=== PATIENT | female | born 1955 | race Caucasian/White ===

== ENCOUNTER 2019-01-18 15:45 | Emergency (ER) | payer MEDICARE ==
[2019-01-18 16:33] VITALS: BP 128/91
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
== END 2019-01-18 17:44 | disposition home or self-care (01) ==
LOC: UCEAST 15:45
DX: S20.221A Contusion of right back wall of thorax, initial encounter (principal); W22.8XXA Striking against or struck by other objects, initial encounter; Y93.16 Activity, rowing, canoeing, kayaking, rafting and tubing; Y92.838 Other recreation area as the place of occurrence of the external cause
CPT/HCPCS: 99212; G0463

== ENCOUNTER 2019-05-22 10:58 | Emergency (ER) | payer MEDICARE ==
[2019-05-22 11:36] VITALS: BP 152/84
--- NOTE | 2019-05-22 11:53 | UC ---
Skin Complaint HPI - HPI Summary HPI Summary: Received flu shot on 05/19/19 and has had bodyaches,subj fever and left arm pain/soreness, mostly in bicep since then. She does exercise prepping for her hip replacment but does not think that is contributing. She denies tingling/numbness, denies redness or swelling in arm. Reports feeling like it is a deep ache. Has pain when lifting heavy items, pain radiates to shoulder. nothing makes it better. - History of Current Complaint Chief Complaint: UCUpperExtremity Time Seen by Provider: 05/22/19 11:44 Stated Complaint: SORE ARM FROM FLU SHOT Hx Obtained From: Patient Pain Intensity: 9 Pain Scale Used: 0-10 Numeric Aggravating Factor(s): Other Alleviating Factor(s): Nothing - Allergy/Home Medications Allergies/Adverse Reactions: Allergies Allergy/AdvReac Type Severity Reaction Status Date / Time No Known Allergies Allergy Verified 05/22/19 11:37 PMH/Surg Hx/FS Hx/Imm Hx - Additional Past Medical History Additional PMH: chronic arthritis. Previously Healthy: Yes - Surgical History Surgical History: Yes Surgery Procedure, Year, and Place: LEFT KNEE MENISCUS REPAIR, - Family History Known Family History: Positive: Respiratory Disease - Social History Alcohol Use: Occasionally Substance Use Type: None Smoking Status (MU): Never Smoked Tobacco Review of Systems All Other Systems Reviewed And Are Negative: Yes Constitutional: Positive: Fever, Fatigue. Negative: Chills Skin: Negative: Rash, Bruising Respiratory: Negative: Shortness Of Breath Cardiovascular: Negative: Chest Pain Musculoskeletal: Positive: Arthralgia, Myalgia. Negative: Edema Physical Exam Triage Information Reviewed: Yes Appearance: Well-Appearing Vital Signs: Initial Vital Signs Temp 98.2 F 05/22/19 11:33 Pulse 78 05/22/19 11:33 Resp 16 05/22/19 11:33 BP 152/84 05/22/19 11:33 Pulse Ox 100 05/22/19 11:33 Vital Signs Reviewed: Yes Neck: Positive: No Lymphadenopathy Respiratory Exam: Normal Cardiovascular Exam: Normal Musculoskeletal: Positive: ROM Intact - entire L upper extremity, Other: - Tenderness at L joint only, bicep, deltoid on L side all palpated w/ NO tenderness. Neurological: Positive: Muscle Tone Normal Skin: Negative: Rashes, Other - There is NO redness or swelling at injection site. Her entire L arm is free from any skin issues. Course/Dx - Course Course Of Treatment: Unclear etiology of L upper arm pain after receiving the flu shot. There are no complaints of neurovascular symptoms and no signs of inflammation at injections site. When asked if this could be a chronic joint issues she said no b/c it was right after the flu vaccine injection. We reviewed warning signs/ sx of when to be re-evaluated or if pain persists perhaps getting seen by her pcp. At this point there are no indications this pain was from the flu vaccine or is occurring at the flu vaccine site. Blood pressure elevated but she will disc w/ pcp. - Differential Diagnoses - Skin Complaint Differential Diagnoses: Allergic Reaction, Drug Rash, Drug Intoxication - Diagnoses Provider Diagnosis: Left arm pain Discharge ED - Sign-Out/Discharge Documenting (check all that apply): Patient Departure All imaging exams completed and their final reports reviewed: No Studies - Discharge Plan Condition: Good Disposition: HOME Patient Education Materials: Influenza A Virus Vaccine, H5N1, Inactivated ( Injection) Referrals: Ivory Frances NP [Primary Care Provider] - Additional Instructions: If you develop redness, fever, weakness or numbness please follow up here. If the pain is the same or worse please follow up with primary care. - Billing Disposition and Condition Condition: GOOD Disposition: Home
== END 2019-05-22 12:23 | disposition home or self-care (01) ==
LOC: UCEAST 10:58
DX: M79.622 Pain in left upper arm (principal); M19.90 Unspecified osteoarthritis, unspecified site; R50.9 Fever, unspecified; R53.83 Other fatigue

== ENCOUNTER 2019-06-30 09:00 | Inpatient (IN) | payer MEDICARE ==
--- NOTE | 2019-06-17 10:25 | HP ---
PREOPERATIVE HISTORY AND PHYSICAL: DATE OF ADMISSION/SURGERY: 06/30/19 DATE OF OFFICE VISIT: 06/17/19 SURGEON: Lucero Ortega MD * (DICTATED BY PAPI QUIROGA) PROCEDURE: Left total hip arthroplasty. CHIEF COMPLAINT: Left hip pain. HISTORY OF PRESENT ILLNESS: Ms. Read is a 63-year-old female with severe end- stage osteoarthritis of the left hip. She has failed conservative treatment and elected to proceed with a left total hip arthroplasty. PAST MEDICAL HISTORY: Osteoporosis, asthma, and scoliosis. PAST SURGICAL HISTORY: Left knee arthroscopy, cervical polypectomy under anesthesia, and tonsillectomy. CURRENT MEDICATIONS: 1. Meloxicam 7.5 mg twice a day. 2. Tylenol as needed. 3. Centrum Silver. 4. Aspercreme. 5. Ventolin HFA 2 puffs daily. 6. Accolate 20 mg a day. 7. Advair Diskus once a day. 8. Vitamin D. 9. Calcium. 10. Turmeric. 11. Mometasone. 12. Prolia. ALLERGIES: No known drug allergies. FAMILY HISTORY: Dementia, cancer, COPD, asthma, and Parkinson's disease. SOCIAL HISTORY: She is a 63-year-old female. She lives with her . She does not smoke or use drugs. REVIEW OF SYSTEMS: A complete 14-point review of systems was reviewed with the patient, is positive for asthma. She denies history of DVT, PE, hepatitis, HIV , or anesthesia problems. PHYSICAL EXAMINATION GENERAL: She is well-developed, well-nourished, in no acute distress. VITAL SIGNS: She stands 60 inches tall, weighs 117 pounds, her blood pressure is 134/88. Her heart rate is 72. HEENT: Normocephalic, atraumatic. NECK: Supple. No palpable lymph nodes. PULMONARY: Lungs are clear to auscultation bilaterally. CARDIO: Regular rate and rhythm. Strong S1 and S2. ABDOMEN: Soft, nontender, nondistended. NEUROLOGICAL: She is alert and oriented x3. MUSCULOSKELETAL: Left lower extremity: The skin is intact. There are no open wounds or abrasions. She walks with an antalgic type gait favoring her left hip. She has 80 degrees of hip flexion and 0 degrees of internal rotation and both reproducing severe groin pain. She is able to dorsiflex and plantarflex, has a 2+ dorsalis pedis pulse and intact sensation. ASSESSMENT AND PLAN: Ms. Read is a 63-year-old female with severe end-stage osteoarthritis of the left hip. She has failed conservative treatment and elected to proceed with the left total hip arthroplasty. The surgery is scheduled for 06/30/[address] Ortega discussed the risks and benefits of the surgery at today's visit and all of her questions were answered. She will follow up with Dr. Ortega 2 weeks after the surgery. PAPI QUIROGA [id number]/[facility] #: [id number] PAPITO
[~2019-06-30 09:00] MED LIST: Buffered Lidocaine 1% SYRIN* 1 ML/SYRINGE INTRADERM ONE; Famotidine IV* 10 MG/ML 2 ML (20 mg) IV ONE; Famotidine IV* 10 MG/ML 2 ML (20 mg) ONE; Gabapentin CAP(*) 300 MG ONE; Gabapentin CAP(*) 300 MG PO ONE; Lactated Ringers 1000 ML Bag* 1,000 ML IV SCH; Tranexamic Acid 1,000 MG in NS 0.9% 50 ML* (outpatient use) IV SCH; ceFAZolin 2 GM in NS PREMIX(*) 2 GM/100 ML BAG IVPB ONE
[2019-06-30] MEDS ORDERED: fentaNYL* 50 MCG/ML 2 ML VIAL (100 MCG VIAL) ONE ×2 (10:40→14:20)
[2019-06-30] MEDS ORDERED: Midazolam* 1 MG/ML 2 ML VIAL (2 MG) ONE (10:40)
[2019-06-30] MEDS ORDERED: ROPIVACAINE 5 MG/ML 30 ML BTL (0.5%) ONE (11:22)
[2019-06-30] MEDS ORDERED: Ropivacaine (OR use only) 2 MG/ML 10 ML ONE (11:24)
[2019-06-30] MEDS ORDERED: Lidocaine 2% PF * 5 ML VIAL ONE (12:45)
[2019-06-30] MEDS ORDERED: Acetaminophen IV 1GM/100ML * 100 ML ONE (12:45)
[2019-06-30] MEDS ORDERED: Propofol* 10 MG/ML 20 ML BTL ONE ×2 (13:29→15:03)
[2019-06-30] MEDS ORDERED: Dexamethasone IV* 4 MG/ML 1 ML (4 MG) ONE (13:29)
[2019-06-30] MEDS ORDERED: DiMENhydriNATE IV* 50 MG/ML VIAL IV PUSH PRN (13:39)
[2019-06-30] MEDS ORDERED: Naloxone* 0.4 MG/ML 1 ML VIAL IV PRN (13:39)
[2019-06-30] MEDS ORDERED: Ondansetron INJ* 2 MG/ML VIAL IV PRN ×2 (13:39→15:25)
[2019-06-30] MEDS ORDERED: diPHENhydraMINE IV* 50 MG/ML 1 ml VIAL (BENADRYL) IV PRN ×2 (13:39→15:25)
[2019-06-30] MEDS ORDERED: fentaNYL* 50 MCG/ML 2 ML VIAL (100 MCG VIAL) IV PRN (13:39)
[2019-06-30] MEDS ORDERED: Levalbuterol 0.63MG/3ML NEB* UNIT OF USE INH PRN (13:39)
[2019-06-30] MEDS ORDERED: EPHEDrine (Pressors)* 50 MG/ML VIAL ONE (14:31)
[2019-06-30] MEDS ORDERED: Ondansetron INJ* 2 MG/ML VIAL ONE (15:03)
[2019-06-30] MEDS ORDERED: Ondansetron ODT TAB* 4 MG PO PRN (15:25)
[2019-06-30] MEDS ORDERED: Ondansetron TAB* 4 MG PO PRN (15:25)
[2019-06-30] MEDS ORDERED: diPHENhydraMINE PO* 25 MG PO PRN (15:25)
[2019-06-30] MEDS ORDERED: Morphine INJ* 2 MG/ML 1 ML SYRINGE (TWO MG - NEW SYRINGE VERSION) IV PRN (15:25)
[2019-06-30] MEDS ORDERED: Cyclobenzaprine TAB* 10 MG PO PRN (15:25)
[2019-06-30] MEDS ORDERED: Magnesium Hydroxide LIQ* 30 ML UDC PO PRN (15:25)
[2019-06-30] MEDS ORDERED: Polyethylene Glycol 3350* 17 GM PACKET PO PRN (15:25)
--- NOTE | 2019-06-30 16:26 | PN ---
Progress Note - Progress Note Date of Service: 06/30/19 Note: resting comfortably in recovery, pain well controlled; able to DF/PF, 2+ DP pulse and intact sensation; hip abduction pillow in place; dressing c/d/i
[2019-06-30] MEDS: Lactated Ringers 1000 ML Bag* 1,000 ML IV SCH (16:59)
[2019-06-30] MEDS: oxyCODONE TAB* 5 MG TAB PO PRN (18:10)
--- NOTE | 2019-06-30 19:19 | OP ---
Operative Report - Blank - Operative Report Date of Operation: 06/30/19 Note: YENI BETTS 1955 Date Of Surgery: 06/30/19 Lucero Ortega MD Fire Warden: Sudha TURPIN did help throughout the procedure with preparation of the hip, wound retraction, manipulation of the hip, and wound closure. Anesthesiologist: Dr. Kennedy Anesthesia Type: Spinal Preoperative Diagnosis: Left severe degenerative osteoarthritis of the hip Postoperative Diagnosis: As above Procedure Performed: Left Total Hip Arthroplasty Complications: None Specimen: Femoral head and acetabular reamings sent to pathology. Hardware used: This is uncemented [place] total hip arthroplasty hardware for the femur a size 5 accolade II with 127 neck angle femoral component, for the acetabulum a size 46C trident II tritanium cluster hole shell, one 20 mm screw, for the insert a size 36C MDM liner insert, and for the femoral head a size 22.2 +0 LFIT V40 femoral head, with a 22.2/36C MDM X3 insert. Brief history/Indication: YENI BETTS was known in clinic and had a history of severe left hip pain. She failed conservative treatment with anti-inflammatories , pain pills, intra-articular injections and physical therapy. She elected to undergo left total hip arthroplasty due to continued pain and decreased quality of life. Radiographs showed severe end stage osteoarthritis of the hip with bone on bone contact. Informed consent was obtained from the patient. She understood the risks of surgery included but were not limited to: bleeding, infection, damage to nearby structures, intraoperative fracture, nerve palsy, failure of the hardware, early loosening, stiffness or loss of motion, dislocation, leg length discrepancy, anesthesia complications, stroke, heart attack, blood clot and . She wished to proceed. Intra-Operative findings: Intraoperatively the patient was noted to have severe loss of cartilage of the acetabulum and femoral head. She had deformity of the acetabulum which was extensive, with broken fragments of bone along the anterior wall and superolateral wall. Description of the Procedure: YENI BETTS was identified in the preanesthesia unit. Her left hip was marked as the correct operative side. Informed consent was signed and placed in the chart. The patient was taken to the operating room and placed under anesthesia without complication. A yancey catheter was placed. The patient was placed on the peg board with all bony prominences well padded. The left lower extremity was prepped and draped in the usual sterile fashion. Preoperative time-out was made to correctly identify the patient, side and site. Appropriate intraoperative antibiotics were given within one hour of incision. A standard posterior incision was made and carried sharply down to the lateral fascia. A new 10 blade was used to make an incision in the fascia in line with the skin incision. A charnley retractor was placed. The piriformis and conjoined tendons were identified and elevated off the posterolateral femur using electrocautery. These were tagged with number 5 Ethibond. Next electrocautery was used to make a posterolateral capsular flap and this was tagged with number 5 Ethibonds. The hip was carefully dislocated. Lesser trochanter to the center of the femoral head was measured at 55 mm. The oscillating saw was used to make the femoral neck cut. The femoral head was carefully removed. The femur was retracted anteriorly and the acetabular retractors were placed. Long-handled knife was used to sharply remove any remaining labrum from the acetabular rim. The acetabulum was extremely worn with a broken fragment along the anterior wall and a large broken fragment along the superolateral wall. These fragments were carefully removed. The acetabulum was sequentially reamed up to a size 46. A bleeding subchondral bone bed was obtained. A trial liner was placed and had excellent fit and stability. A 46C cup with a 20 mm screw was placed and had excellent stability with appropriate anteversion and abduction angle. A size 36 C MDM cementless liner was impacted into the acetabular shell. The liner was checked for stability and was stable. Next attention was turned to preparation of the femoral canal. A canal finder was used to enter the proximal femur. The femoral canal was sequentially broached up to a size 5 femoral broach trial. A trial neck and 22.2 + 0 trial femoral head with 36C X3 MDM trial was chosen. Lesser trochanter to center of the femoral head measurement was satisfactory. The hip was reduced and taken through a range of motion. The hip was stable in all positions with good soft tissue tension and appropriate leg lengths. The hip was dislocated and all trials were removed. The final implant chosen was a accolade size 5. This stem was impacted into the femoral canal without difficulty. The stem was stable with appropriate anteversion. The femoral head chosen was a 22.2 + 0 with 22.2/36C MDM liner insert. The head was impacted onto the femoral neck without difficulty. The final lesser trochanter to center of the femoral head measurement was satisfactory. The hip was reduced and taken through a range of motion. The hip was stable in all positions with good soft tissue tension and appropriate leg lengths. The hip was copiously irrigated with sterile saline. The previously tagged capsule and tendons were repaired to the posterolateral femur through two trochanteric drill holes. The lateral fascia layer was closed using number 1 vicryls. The rest of the incision was closed in a layered fashion using 0 and 2-0 vicryls. The skin was closed using 3-0 monocryl suture and Dermabond. Sterile adaptic, 4x4s and paper tape was used to cover the incision. The patients anesthesia was reversed without difficulty. She was taken to the PACU in stable condition. Intended weight-bearing will be as tolerated with posterior hip precautions.
[2019-06-30] MEDS: Magnesium Hydroxide LIQ* 30 ML UDC PO SCH (21:12)
[2019-06-30] MEDS: ceFAZolin 1 GM ADVAN(*) 1 GM in NS 0.9% 50 ML* 50 ML IVPB SCH (21:12)
[2019-06-30] MEDS: Docusate CAP* 100 MG PO SCH (21:12)
[2019-06-30] MEDS: Acetaminophen TAB* 325 MG PO SCH (23:02)
[2019-07-01] MEDS: oxyCODONE/Acetamin 5/325 MG* TAB PO PRN ×4 (03:26→19:47)
[2019-07-01] MEDS: Lactated Ringers 1000 ML Bag* 1,000 ML IV SCH (03:35)
[2019-07-01] MEDS: oxyCODONE TAB* 5 MG TAB PO PRN ×3 (05:28→17:13)
[2019-07-01] MEDS: ceFAZolin 1 GM ADVAN(*) 1 GM in NS 0.9% 50 ML* 50 ML IVPB SCH ×2 (05:30→12:36)
[2019-07-01 05:54] LABS: Hematocrit 27 % (35-47); Hemoglobin 9.2 g/dL (12.0-16.0); Mean Platelet Volume 7.2 fL (7.4-10.4); Platelet Count 238 10^3/uL (150-450)
[2019-07-01 06:13] LABS: BUN/Creatinine Ratio 42.9 (8-20); Calcium 8.4 mg/dL (8.6-10.3); EGFR African American 183.2 (>60); EGFR Non-African American 151.4 (>60); Potassium 4.4 mmol/L (3.5-5.0)
[2019-07-01] MEDS: Acetaminophen TAB* 325 MG PO SCH ×3 (06:54→22:13)
[2019-07-01] MEDS: Magnesium Hydroxide LIQ* 30 ML UDC PO SCH ×2 (10:00→19:48)
[2019-07-01] MEDS: Docusate CAP* 100 MG PO SCH ×2 (10:01→19:48)
[2019-07-01] MEDS: Mometasone/Formoter 100/5 MDI INH SCH (10:01)
[2019-07-01] MEDS: Montelukast Sodium TAB* 5 MG PO SCH (10:01)
[2019-07-01] MEDS: Apixaban* 2.5 MG TAB PO SCH ×2 (10:01→19:47)
[2019-07-01] MEDS: Vitamin THERAPEUTIC TAB PO SCH (10:02)
--- NOTE | 2019-07-01 13:39 | PN ---
Progress Note - Progress Note Date of Service: 07/01/19 SOAP: Subjective: [Pt was seen sitting in chair this morning. She is very nervous about her hip. She states that she is concerned about the 50% WB status and is trying to learn how to follow it well with physical therapy. She denies any chest pain, SOB, nausea or vomiting. ] Objective: [General: Pt is alert and oriented x3. NAD MSK, LLE: Dressing is c/d/i. +df/pf. calves soft and non tender. NVI. 2+ DP pulse. ] Vital Signs Temp 99.4 F 07/01/19 13:00 Pulse 85 07/01/19 13:00 Resp 16 07/01/19 13:00 BP 126/53 07/01/19 13:00 Pulse Ox 97 07/01/19 13:00 Intake & Output 06/30/19 07/01/19 07/01/19 18:59 06:59 18:59 Intake Total 1600 1535 440 Output Total 250 850 Balance 1350 685 440 Weight 115 lb Intake: IV Fluids 1600 1035 ABX - CEFAZOLIN 55 LR 1600 980 Oral 500 440 Output: Hutcihson 250 850 Other: Estimated Void Medium Assessment: [POD 1 LTHA ] Plan: [Continue with 50% WB with strict posterior hip precautions Pain management PT/OT ]
[2019-07-02] MEDS: oxyCODONE/Acetamin 5/325 MG* TAB PO PRN ×4 (00:05→11:53)
[2019-07-02] MEDS: Acetaminophen TAB* 325 MG PO SCH ×2 (06:57→13:29)
[2019-07-02 07:25] LABS: Hematocrit 24 % (35-47); Hemoglobin 8.3 g/dL (12.0-16.0); Mean Platelet Volume 7.3 fL (7.4-10.4); Platelet Count 197 10^3/uL (150-450)
--- NOTE | 2019-07-02 07:38 | PN ---
Progress Note - Progress Note Date of Service: 07/02/19 SOAP: Subjective: Pt. is alert. Reports moderate pain left hip. Objective: Vital Signs: Temp Pulse Resp BP Pulse Ox 98.9 F 75 16 114/51 93 07/02/19 03:19 07/02/19 03:19 07/02/19 06:27 07/02/19 03:19 07/02/19 03:19 Laboratory Results - last 24 hr 07/02/19 07:04 Hgb 8.3 L Hct 24 L Plt Count 197 MPV 7.3 L LLE - dressing changed, inc c/d/i. thigh swollen but compressible. distally nvi. Assessment: 63 yo F pod 2 s/p LTHA Plan: pt - 50 % wb lle secondary to extreme acetabular bone loss intraop from chronic wear eliquis plan home with vns acute postop blood loss anemia - will monitor
[2019-07-02] MEDS: Mometasone/Formoter 100/5 MDI INH SCH (08:05)
[2019-07-02] MEDS: Montelukast Sodium TAB* 5 MG PO SCH (08:36)
[2019-07-02] MEDS: Apixaban* 2.5 MG TAB PO SCH (08:37)
[2019-07-02] MEDS: Magnesium Hydroxide LIQ* 30 ML UDC PO SCH (08:37)
[2019-07-02] MEDS: Vitamin THERAPEUTIC TAB PO SCH (08:37)
[2019-07-02] MEDS: Docusate CAP* 100 MG PO SCH (08:37)
[2019-07-02] MEDS ORDERED: Bisacodyl SUPP* 10 MG SUPP PR PRN (15:25)
[2019-07-02 15:41] VITALS: BP 115/51
--- NOTE | 2019-07-02 18:08 | DS ---
Orthopedic Discharge Summary - Discharge Summary Date of service: 07/02/19 Date of Admission:06/30/19 Date of Discharge: [07/02/19] Date of Surgery: [06/30/19] Attending Orthopedic Provider: [Dr. Ortega] Pre-operative Diagnosis: [Left hip OA] Operative Procedure: [Left total hip replacement] Disposition of Patient: [Home with VNS] Condition of Patient: [Stable] History: YENI BETTS is a 63 year old F with years of increasingly severe [left hip] pain. Patient has failed conservative management and has elected to undergo a [left] total [hip] replacement Hospital Course: YENI was admitted to [facility] on 06/30/19. Patient underwent a [left total hip replacement] without complication followed by a brief recovery in PACU and transfer to the Short Stay Surgical Unit in stable condition. She was 50% weight bearing due to a thin acetabulum. Our hospitalist service, physical therapy and occupational therapy also participated in this patients care. Post-op day 1: patient was alert and in no acute distress. Dressing was clean, dry and intact. Operative extremity dorsiflexion and plantarflexion intact, sensation intact to light touch distally , DP2+. Post-op day two: dressing was changed, incision was clean, dry and intact. Patient was deemed to be medically and orthopedically stable for discharge to home with VNS services. Physical therapy goals were met. Home Medications Medication Instructions Recorded Confirmed Type Fluticasone-Salmeterol 100-50* 1 puff INH DAILY 04/02/13 06/30/19 History [Advair Diskus 100-50*] Multivitamins/Minerals TAB* [Thera 1 tab PO QAM 04/02/13 06/30/19 History M Plus TAB*] Vitamin D CAP* [Drisdol CAP*] 1 cap PO QAM 04/02/13 06/30/19 History Zafirlukast TAB* [Accolate TAB*] 20 mg PO QAM 04/02/13 06/30/19 History Acetaminophen [Acetaminophen 8 1,300 mg PO QID PRN 01/18/19 06/30/19 History Hour] Denosumab [Prolia] 1 unit INJ SEE INSTRUCTIONS 01/18/19 06/30/19 History Lidocaine PATCH 5%* [Lidoderm 5% 1 patch TRANSDERM DAILY PRN #10 01/18/19 Rx Patch*] patch Calcium Carbonate/Vitamin D3 1 tab PO BID 06/17/19 06/30/19 History [Calcium 600 + Vit D Tablet] Cholecalciferol (Vitamin D3) 1,000 unit PO QAM 06/17/19 06/30/19 History [Vitamin D3] Turmeric 500 mg PO QAM 06/17/19 06/30/19 History Biofreeze 06/30/19 History Apixaban* [Eliquis*] 2.5 mg PO BID tab 07/02/19 Rx Docusate CAP* [Colace Cap*] 100 mg PO BID cap 07/02/19 Rx oxyCODONE/Acetamin 5/325 MG* 2 tab PO Q4H PRN tab MDD 10 07/02/19 Rx [Percocet 5/325 TAB*] Discharge Instructions following Orthopedic Surgery: Activity: * 50% Weight Bearing * Continue physical therapy and occupational therapy exercises as shown Hip replacements: Continue Strict Hip Precautions- do not cross legs or bend greater than 90 degrees/squat Wound care: * OK to shower on post-op day 3, no bathing, swimming, or submerging wound. * Use gentle soap, pat dry. Cover with gauze, DYLAN wrap or tape. * Visiting home nurse to do wound checks. Call Orthopedic office for: * Increased drainage * Redness * Increased pain * Fever Go to ER with shortness of breath or chest pain. Diet: * Regular diet * Increase fluids and fiber to prevent constipation. * Continue to use stool softeners, call office if no bowel motion within 48 hours. * Colace 100 mg 1 tab three times a day as needed constipation Medications See Home Medication List in your packet for medications that you should take after discharge. DVT Prophylaxis: Eliquis Dosin.5 mg, 1 tab every 12 hours x 30 days DO NOT take meloxicam while on eliquis Pain Control: Percocet Dosin/325 mg 1-2 tabs by mouth every 4-6 hours as needed for pain. Maximum of 10 tabs per day. Please note that Percocet contains Tylenol (acetaminophen). Maximum daily dose of Tylenol is 4000 mg from all sources. Antibiotics are required prior to any dental work. FOLLOW UP: Follow up with [Jordan] Within 10-14 days, call for appointment Please call our office with any questions or concerns ([phone]) RX to [facility] [place] on 07/02
== END 2019-07-02 15:30 | disposition home health service (06) | DRG 470 ==
LOC: AA 09:00 → SSU 15:25
PROVIDERS: ADMIT Orthopaedic Surgery Adult Reconstructive Orthopaedic Surgery; ATTEND Orthopaedic Surgery Adult Reconstructive Orthopaedic Surgery
PROC: 0SRB01A Replacement of Left Hip Joint with Metal Synthetic Substitute, Uncemented, Open Approach (ICD-10-PCS; principal; 2019-06-30 12:30)
DX: M16.12 Unilateral primary osteoarthritis, left hip (principal); D62 Acute posthemorrhagic anemia; M81.0 Age-related osteoporosis without current pathological fracture; F41.9 Anxiety disorder, unspecified; E78.00 Pure hypercholesterolemia, unspecified; J45.30 Mild persistent asthma, uncomplicated; M41.35 Thoracogenic scoliosis, thoracolumbar region; F32.9 Major depressive disorder, single episode, unspecified; L71.9 Rosacea, unspecified; E55.9 Vitamin D deficiency, unspecified; Z85.828 Personal history of other malignant neoplasm of skin
CPT/HCPCS: 36415; 80048; 85014; 85018; 85049; 94640; A9270-GY; C1713; C1776; G8978-GP-CK; G8979-GP-CI; G8987-GO-CK; G8988-GO-CI; J0690; J1100; J2250; J2405; J2704; J2795; J3010